=== PATIENT | female | born 1960 | race Caucasian/White ===

== ENCOUNTER 2016-10-23 13:21 | Inpatient (IN) | payer OTHER ==
[~2016-10-23] VITALS: Ht 157.5 cm; Wt 104.0 kg
[2016-10-23] MEDS ORDERED: PRINZIDE 12.5 M1 TAB PO ×2 (13:28→18:07)
[2016-10-23] MEDS ORDERED: ULTRAM 50MG TAB50 MG PO (13:28)
[2016-10-23] MEDS ORDERED: FLEXERIL 1010 MG/TAB PO (13:28)
[2016-10-23 14:20] LABS: BASO # 0.1 (0.0-0.2); BASO % 0.5 % (0.0-2.0); EOS # 0.3 (0.0-0.7); EOS % 1.9 % (0-4.0); GRAN # 10.7 (1.4-6.5); GRAN % 73.6 % (42.2-75.2); HEMATOCRIT 40.4 % (37.0-47.0); HEMOGLOBIN 13.5 g/dl (12.5-16.0); LYMPH # 2.5 (1.2-3.4); MEAN CELL VOLUME 113 fl (80.0-100.0); MEAN CORPUSCULAR HEMOGLOBIN 38 pg (27.0-31.0); MEAN CORPUSCULAR HGB CONC 33 g/dl (33.0-37.0); MEAN PLATELET VOLUME 10.6 fl (7.4-10.4); MONO % 6.6 % (1.7-9.3); PLATELET COUNT 366 K/mm3 (130-400); RED BLOOD COUNT 3.59 M/mm3 (4.10-5.30); REDCELL DISTRIBUTION WIDTH-CV 13.2 % (11.5-14.5); WHITE BLOOD COUNT 14.6 K/mm3 (4.8-10.8)
[2016-10-23 14:43] LABS: ERYTHROCYTE SEDIMENTATION RATE 37 mm/hr (0-30)
[2016-10-23 14:54] LABS: ADJUSTED CALCIUM 9.8 mg/dL (8.4-10.2); ALANINE AMINOTRANSFERASE 39 U/L (9-52); ALBUMIN 3.2 gm/dL (3.5-5.0); ALKALINE PHOSPHATASE 191 U/L (50-136); ANION GAP 14 mmol/L (7-16); BLOOD UREA NITROGEN 40 mg/dL (7-17); CALCIUM 9.2 mg/dL (8.4-10.2); CARBON DIOXIDE 24 mmol/L (22-30); CHLORIDE 100 mmol/L (98-107); CREATININE, serum 2.32 mg/dL (0.52-1.25); GLUCOSE 97 mg/dL (74-106); LIPASE 48 U/L (23-300); POTASSIUM 4.2 mmol/L (3.4-5.0); SODIUM 138 mmol/L (137-145); TOTAL PROTEIN 7.7 gm/dL (6.4-8.2)
[2016-10-23 14:56] LABS: HYALINE CAST >12 /lpf; PH 5 (5-8); SQUAMOUS EPITHELIAL 20-50 /hpf; URINE APPEARANCE Cloudy; URINE BACTERIA Rare /hpf; URINE BILIRUBIN Positive (NEGATIVE); URINE BLOOD 2+ (NEGATIVE); URINE COLOR Amber; URINE GLUCOSE Negative (NEGATIVE); URINE KETONE Negative (NEGATIVE); URINE UROBILINOGEN >=4.0 mg/dL (NEGATIVE)
[2016-10-23 15:13] LABS: INR 1.1 (0.8-3.0); PROTHROMBIN TIME 11.9 SECONDS (9.7-12.8)
[2016-10-23 15:16] LABS: PARTIAL THROMBOPLASTIN TIME 38.3 SECONDS (26.0-37.0)
[2016-10-23 15:29] LABS: B-TYPE NATRIURETIC PEPTIDE 517 pg/mL (0-125); TROPONIN-I 0.012 ng/mL (0.000-0.034)
[2016-10-23] MEDS ORDERED: IBU800 M1 PO (18:08)
[2016-10-23 18:19] VITALS: BP 114/76; PULSE 92; TEMP 97.8
[2016-10-23 18:41] LABS: PERITONEAL -POLYMORPHONUCLEAR 35.4 % (0-25); PERITONEAL FLUID RBC 0 /mm3 (0-0)
[2016-10-23 19:03] LABS: MAGNESIUM 1.7 mg/dL (1.6-2.3)
[2016-10-23 19:09] LABS: AMPHETAMINE URINE NEGATIVE; BARBITURATES URINE NEGATIVE; BENZODIAZEPINES URINE NEGATIVE; BUPRENORPHINE URINE NEGATIVE; METHADONE URINE NEGATIVE; OPIATES URINE NEGATIVE; OXYCODONE URINE NEGATIVE; PHENCYCLIDINE URINE NEGATIVE; PROPOXYPHENE URINE NEGATIVE; THC CANNABINOIDS URINE NEGATIVE
[2016-10-23 20:23] VITALS: BP 92/47; PULSE 91; TEMP 97.4
[2016-10-23 23:58] VITALS: BP 117/67; PULSE 93; TEMP 97.6
[2016-10-24 04:32] VITALS: BP 90/53; PULSE 85; TEMP 97.5
[2016-10-24 08:25] VITALS: BP 82/52; PULSE 88; TEMP 97.9
[2016-10-24 10:21] VITALS: BP 94/52
[2016-10-24 11:44] VITALS: BP 90/63; PULSE 82; TEMP 98.2
[2016-10-24 16:28] VITALS: BP 106/65; PULSE 99; TEMP 98
[2016-10-24 21:50] VITALS: BP 102/58; PULSE 75; TEMP 97.7
[2016-10-24 23:17] LABS: PH 5 (5-8); URINE APPEARANCE Hazy; URINE BACTERIA Rare /hpf; URINE BILIRUBIN Negative (NEGATIVE); URINE BLOOD 2+ (NEGATIVE); URINE COLOR Yellow; URINE GLUCOSE Negative (NEGATIVE); URINE KETONE Negative (NEGATIVE); URINE UROBILINOGEN >=4.0 mg/dL (NEGATIVE)
[2016-10-24 23:30] LABS: URINE PROTEIN:CREAT RATIO 0.07 (0.00-0.14)
[2016-10-24 23:45] LABS: HEPATITIS B CORE AB,TOTAL Negative (())
[2016-10-25] VITALS (7 sets, daily range): BP systolic 90–106; BP diastolic 49–72; PULSE 83–95; TEMP 97.5–98.6
[2016-10-25 11:35] LABS: ADD PATHOLOGY DIFF REVIEW NO
[2016-10-25 11:39] LABS: HEMATOCRIT 38.1 % (37.0-47.0); MEAN CELL VOLUME 111 fl (80.0-100.0); MEAN CORPUSCULAR HEMOGLOBIN 38 pg (27.0-31.0); MEAN CORPUSCULAR HGB CONC 34 g/dl (33.0-37.0); MEAN PLATELET VOLUME 10.7 fl (7.4-10.4); RED BLOOD COUNT 3.43 M/mm3 (4.10-5.30); REDCELL DISTRIBUTION WIDTH-CV 13.2 % (11.5-14.5); WHITE BLOOD COUNT 10.9 K/mm3 (4.8-10.8)
[2016-10-25 11:40] LABS: PLATELET COUNT 230 K/mm3 (130-400)
[2016-10-25 11:54] LABS: ADJUSTED CALCIUM 9.7 mg/dL (8.4-10.2); ALBUMIN 2.3 gm/dL (3.5-5.0); BILIRUBIN,TOTAL 1.3 mg/dL (0.0-1.0); CALCIUM 8.3 mg/dL (8.4-10.2); CREATININE, serum 1.47 mg/dL (0.52-1.25); MAGNESIUM 1.6 mg/dL (1.6-2.3); POTASSIUM 3.8 mmol/L (3.4-5.0)
[2016-10-25 11:58] LABS: BAND 1 % (0-10); EOSINOPHIL 3 % (0-4); NEUTROPHILS 67 % (42.0-75.2); PLATELET ESTIMATE NORMAL (NORMAL); TOTAL CELLS COUNTED 100
[2016-10-25 12:03] LABS: TEAR DROP CELLS 1+
[2016-10-26] VITALS (10 sets, daily range): BP systolic 89–114; BP diastolic 55–79; PULSE 82–98; TEMP 97.6–98.1
[2016-10-26 09:40] LABS: ADJUSTED CALCIUM 9.7 mg/dL (8.4-10.2); ALBUMIN 2.5 gm/dL (3.5-5.0); BILIRUBIN,TOTAL 1.4 mg/dL (0.0-1.0); CALCIUM 8.5 mg/dL (8.4-10.2); CREATININE, serum 1.33 mg/dL (0.52-1.25); POTASSIUM 3.5 mmol/L (3.4-5.0); TOTAL PROTEIN 6.1 gm/dL (6.4-8.2)
[2016-10-27 00:16] VITALS: BP 99/70; PULSE 89; TEMP 97.7
[2016-10-27 02:19] VITALS: BP 101/70; PULSE 85; TEMP 97.7
[2016-10-27 05:03] VITALS: BP 111/69; PULSE 88; TEMP 97.8
[2016-10-27 08:20] VITALS: BP 97/63; PULSE 97; TEMP 97.6
[2016-10-27] MEDS ORDERED: THIAMINE 1100 MG/TAB PO (09:55)
[2016-10-27] MEDS ORDERED: FOLIC ACID 11 MG/TA1 PO (09:55)
[2016-10-27] MEDS ORDERED: DUO-KAPS1 CAP PO (09:56)
[2016-10-27] MEDS ORDERED: LASIX 40MG TABL40 MG PO (09:59)
[2016-10-27 10:09] VITALS: BP 101/73; PULSE 96; TEMP 97.8
[2016-10-27] MEDS ORDERED: K-DUR20 MEQ PO (13:34)
[2016-10-27] MEDS ORDERED: ULTRAM 50MG TAB50 MG PO (14:26)
[2016-10-31] MEDS ORDERED: FOLIC ACID 11 MG/TA1 PO (14:54)
[2016-10-31] MEDS ORDERED: THIAMINE 1100 MG/TAB PO (14:55)
[2016-10-31] MEDS ORDERED: MULTI VITAMINS1 TAB PO (14:56)
[2016-10-31] MEDS ORDERED: LASIX 40MG TABL40 MG PO (14:57)
[2016-10-31] MEDS ORDERED: K-DUR20 MEQ PO (14:58)
== END 2016-10-27 18:01 | disposition home or self-care (01) | DRG 433 ==
LOC: COL.ER 13:21 → MEDICAL 16:25
PROVIDERS: Emergency Medicine; Internal Medicine; Nurse Practitioner Family; Physician Assistant
PROC: 0W9G3ZZ Drainage of Peritoneal Cavity, Percutaneous Approach (ICD-10-PCS; principal; 2016-10-23)
DX: K74.60 Unspecified cirrhosis of liver (principal); R18.8 Other ascites; K76.6 Portal hypertension; N17.9 Acute kidney failure, unspecified; Z68.41 Body mass index [BMI] 40.0-44.9, adult; I10 Essential (primary) hypertension; E66.01 Morbid (severe) obesity due to excess calories; Z98.84 Bariatric surgery status; Y90.0 Blood alcohol level of less than 20 mg/100 ml; F10.20 Alcohol dependence, uncomplicated
CPT/HCPCS: 99223-AI; 99232-AI; 99233-AI; 99239; J1170; J1650; J1885; J1940; J2405; J2543; J7030; J7050

== ENCOUNTER → 2016-10-30 | Outpatient (CLI) | payer OTHER ==
[~2016-10-30] MED LIST: DUO-KAPS1 CAP PO; FLEXERIL 1010 MG/TAB PO; FOLIC ACID 11 MG/TA1 PO; IBU800 M1 PO; K-DUR20 MEQ PO; KLONOPIN 0.5MG0.5 MG PO; LASIX 40MG TABL40 MG PO; MULTI VITAMINS1 TAB PO; NA; PRINZIDE 12.5 M1 TAB PO; THIAMINE 1100 MG/TAB PO; ULTRAM 50MG TAB50 MG PO
[2016-10-30 11:46] LABS: CALCIUM 9.1 mg/dL (8.4-10.2); CREATININE, serum 1.13 mg/dL (0.52-1.25); MAGNESIUM 1.4 mg/dL (1.6-2.3); POTASSIUM 3.5 mmol/L (3.4-5.0)
== END ==
LOC: COL.LAB 10:46
PROVIDERS: Internal Medicine Cardiovascular Disease
DX: R18.8 Other ascites (principal)

== ENCOUNTER → 2016-10-31 | Outpatient (CLI) | payer OTHER ==
[~2016-10-31] VITALS: Ht 157.5 cm; Wt 103.8 kg
[2016-10-31 15:02] VITALS: BP 137/100; PULSE 110
[2016-10-31 17:00] VITALS: BP 142/83; PULSE 93
[2016-10-31 18:00] VITALS: BP 141/92; PULSE 93
[2016-10-31 19:00] VITALS: BP 134/87; PULSE 99
[2016-10-31 20:10] VITALS: BP 133/83; PULSE 99
[2016-10-31 21:30] VITALS: BP 130/77; PULSE 95; TEMP 98.9
[2016-11-01 01:45] VITALS: BP 102/69; PULSE 96; TEMP 97.4
[2016-11-01 04:30] VITALS: BP 112/59; PULSE 92; TEMP 97.2
== END ==
LOC: COL.RAD 11:00
DX: R18.8 Other ascites (principal)
CPT/HCPCS: P9047

== ENCOUNTER → 2016-11-04 | Outpatient (CLI) | payer OTHER ==
[2016-11-04 10:14] VITALS: BP 122/96; PULSE 97
== END ==
LOC: COL.RAD 09:30
DX: Z01.89 Encounter for other specified special examinations (principal)

== ENCOUNTER → 2016-12-04 | Outpatient (CLI) | payer OTHER | LOC: COL.LAB 15:59 | DX: K74.60 Unspecified cirrhosis of liver (principal); R79.89 Other specified abnormal findings of blood chemistry; R18.8 Other ascites ==

== ENCOUNTER 2016-12-05 07:48 | Day surgery (SDC) | payer OTHER ==
[~2016-12-05] VITALS: Ht 157.5 cm; Wt 88.5 kg
[2016-12-05] VITALS (7 sets, daily range): BP systolic 91–115; BP diastolic 58–81; PULSE 78–91; TEMP 97–97.2
[~2016-12-05 07:48] MED LIST changes: -KLONOPIN 0.5MG0.5 MG PO; -NA
[2016-12-05] MEDS ORDERED: KLONOPIN 0.5MG0.5 MG PO (08:28)
[2016-12-05] MEDS ORDERED: NA (08:29)
== END 2016-12-05 10:10 | disposition home or self-care (01) ==
LOC: SDCO 07:48
DX: K74.60 Unspecified cirrhosis of liver (principal); K31.89 Other diseases of stomach and duodenum; D64.9 Anemia, unspecified; R79.89 Other specified abnormal findings of blood chemistry; R18.8 Other ascites; Z90.49 Acquired absence of other specified parts of digestive tract
CPT/HCPCS: J1644; J2250; J3010; J7030

== ENCOUNTER 2017-01-05 11:00 | Outpatient (RCR) | payer OTHER ==
[2016-11-13] VITALS (12 sets, daily range): BP systolic 106–124; BP diastolic 59–84; PULSE 71–92
[2016-11-13 10:42] LABS: INR 1.2 (0.8-3.0); PROTHROMBIN TIME 12.8 SECONDS (9.7-12.8)
[2016-11-13 14:18] LABS: PERITONEAL -POLYMORPHONUCLEAR 12.3 % (0-25); PERITONEAL FLUID RBC 0 /mm3 (0-0)
[2016-11-14 12:28] VITALS: BP 103/62; PULSE 86; TEMP 98.4
[2016-11-17 12:01] VITALS: BP 112/76; PULSE 93; TEMP 97.4
[2016-11-24 11:25] VITALS: BP 101/71; PULSE 91; TEMP 97.6
[2016-12-03 10:44] VITALS: BP 116/70; PULSE 86; TEMP 98
[2016-12-08 11:58] VITALS: BP 98/61; PULSE 59; TEMP 98.2
[2016-12-15 11:18] VITALS: BP 144/102; PULSE 100; TEMP 98.4
[2016-12-22 11:35] VITALS: BP 99/68; PULSE 96; TEMP 98.1
[2016-12-29 10:53] VITALS: BP 104/62; PULSE 90; TEMP 98.5
[~2017-01-05] VITALS: Ht 157.5 cm; Wt 83.8 kg
[~2017-01-05 11:00] MED LIST changes: +KLONOPIN 0.5MG0.5 MG PO; +NA
[2017-01-05 12:05] VITALS: BP 86/60; PULSE 87; TEMP 98.1
[2017-01-05] MEDS ORDERED: ALDACTONE 100M100 MG PO (12:07)
== END 2017-01-12 10:25 | disposition home or self-care (01) ==
LOC: EUO 11:00
PROVIDERS: Internal Medicine Cardiovascular Disease
DX: K72.90 Hepatic failure, unspecified without coma (principal); T82.49XA Other complication of vascular dialysis catheter, initial encounter; F10.20 Alcohol dependence, uncomplicated; K70.11 Alcoholic hepatitis with ascites; K70.31 Alcoholic cirrhosis of liver with ascites; R07.89 Other chest pain
CPT/HCPCS: C1751; J1644

== ENCOUNTER → 2017-06-08 | Outpatient (CLI) | payer OTHER ==
[~2017-06-08] MED LIST changes: +ALDACTONE 100M100 MG PO
[2017-06-08 12:38] LABS: BASO % 0.5 % (0.0-2.0); EOS # 0.3 (0.0-0.7); EOS % 3.9 % (0-4.0); GRAN # 4.1 (1.4-6.5); GRAN % 54.7 % (42.2-75.2); HEMATOCRIT 38.7 % (37.0-47.0); HEMOGLOBIN 12.9 g/dl (12.5-16.0); LYMPH # 2.6 (1.2-3.4); MEAN CELL VOLUME 105 fl (80.0-100.0); MEAN CORPUSCULAR HEMOGLOBIN 35 pg (27.0-31.0); MEAN CORPUSCULAR HGB CONC 33 g/dl (33.0-37.0); MONO # 0.4 (0.1-0.6); MONO % 5.8 % (1.7-9.3); PLATELET COUNT 217 K/mm3 (130-400); RED BLOOD COUNT 3.68 M/mm3 (4.10-5.30); REDCELL DISTRIBUTION WIDTH-CV 13.8 % (11.5-14.5)
[2017-06-08 12:50] LABS: ALBUMIN 4.4 gm/dL (3.5-5.0); BILIRUBIN,TOTAL 0.9 mg/dL (0.0-1.0); CALCIUM 9.7 mg/dL (8.4-10.2); CREATININE, serum 0.82 mg/dL (0.52-1.25); POTASSIUM 4.2 mmol/L (3.4-5.0); TOTAL PROTEIN 7.5 gm/dL (6.4-8.2)
[2017-06-08 12:56] LABS: INR 1.1 (0.8-3.0); PROTHROMBIN TIME 12.5 SECONDS (9.7-12.8)
== END ==
LOC: COL.LAB 11:58
PROVIDERS: Physician Assistant
DX: K74.60 Unspecified cirrhosis of liver (principal)